=== PATIENT | female | born 1990 | race Caucasian/White ===

== ENCOUNTER 2016-10-23 15:59 | Emergency (ER) | payer MEDICAID, OTHER ==
[2016-10-23 16:46] VITALS: BMI 52.2
--- NOTE | 2016-10-23 16:48 | OBHP ---
Datetime: 10/23/2016 16:41 IP Adm Impression: , intrauterine IP Admit Plan: Discharge home Admit Comment, IP Provider: 24 yo g1 edc 10/7 by lmp and 6wk us presents to [facility] w/ c/o cough initi ally dry but today with yellow colored sputum, sore throat and nasal congestion. she denies sob, fev er, vag bleeding, pprom or uterine cramping. states current preg uncomplicated pmhx _ pshx: deneis shx: denies etoh, drugs or tobacco nkda medic: pnv I: 23.2wk uri morbid obesity p: pt d/w dr son pt to ed for eval of uri Abdomen - PN: Normal Heart - PN: Normal Neurologic - PN: Normal HEENT - PN: Normal General - PN: Normal FHR - Baseline A Provider: 140 EGA AdmitDate IP: 23.2 IP Chief Complaint: Other NICHD Variability Prov Fetus A: Minimal - Undetectable to <5bpm NICHD Accel Fetus A IP Provider: 10X10 FHR Category Provider Fetus A: Category I NICHD Decel Fetus A IP Provider: None
[2016-10-23 17:15] VITALS: BP 109/62; O2SAT 98
--- NOTE | 2016-10-23 17:38 | ED PDOC ---
HPI: CCC, URI, Sore Throat Time Seen by Provider: 10/23/16 17:19 Chief Complaint (Nursing): Shortness Of Breath History Per: Patient (Cough productive yellow sputum assoc with sore throat and nasal congestion x 2 days. No SOB) Onset/Duration Of Symptoms: Days (2) Current Symptoms Are (Timing): Still Present Location Of Pain: Throat Associated Symptoms: Sore Throat, Cough, Sputum, Nasal Congestion. denies: Fever Past Medical History Vital Signs: Last Vital Signs Temp 98.7 F 10/23/16 17:13 Pulse 92 H 10/23/16 17:13 Resp 20 10/23/16 17:13 BP 109/62 10/23/16 17:13 Pulse Ox 98 10/23/16 17:13 - Medical History PMH: No Chronic Diseases - Family History Family History: States: Unknown Family Hx - Home Medications Home Medications: Ambulatory Orders Medication Instructions Recorded Cephalexin [Keflex] 500 mg PO QID #28 cap 10/16/14 Clindamycin [Cleocin] 300 mg PO TID #30 cap 07/22/15 Tobramycin/Dexamethasone [Tobradex 1 oin TOP Q6H #1 tube 07/22/15 Opht Oint] Azithromycin [Zithromax] 250 mg PO DAILY #6 tab 10/23/16 Budesonide [Rhinocort Allergy] 8.43 ml NS DAILY #1 spray.pump 10/23/16 - Allergies Allergies/Adverse Reactions: Allergies Allergy/AdvReac Type Severity Reaction Status Date / Time pineapple AdvReac RASH Verified 10/23/16 16:45 Review of Systems Constitutional: Negative for: Fever ENT: Positive for: Throat Pain Respiratory: Positive for: Cough. Negative for: Shortness of Breath Physical Exam - Physical Exam Appears: Positive for: Non-toxic, No Acute Distress Skin: Positive for: Normal Color, Warm, DRY ENT: Negative for: Pharyngeal Erythema, Tonsillar Exudate Neck: Positive for: Normal, Painless ROM Cardiovascular/Chest: Positive for: Regular Rate, Rhythm Respiratory: Positive for: Normal Breath Sounds. Negative for: Wheezing, Respiratory Distress - ECG O2 Sat by Pulse Oximetry: 98 Disposition - Clinical Impression Clinical Impression: URI (upper respiratory infection), Pharyngitis - Disposition Referrals: Isaac Heredia MD [Primary Care Provider] - Disposition: Routine/Home Disposition Time: 17:37 Condition: FAIR Prescriptions: Azithromycin [Zithromax] 250 mg PO DAILY #6 tab Budesonide [Rhinocort Allergy] 8.43 ml NS DAILY #1 spray.pump Instructions: Pharyngitis (ED), Upper Respiratory Infection (ED)
[2016-10-23 17:55] VITALS: TEMP 97.6
[2016-10-23 17:56] VITALS: PULSE 87
[2016-10-23 17:57] VITALS: RESP 19
== END 2016-10-23 17:57 | disposition home or self-care (01) ==
LOC: H.EROB2 15:59 → H.ER 15:59
DX: J06.9 Acute upper respiratory infection, unspecified (principal); J02.9 Acute pharyngitis, unspecified; Z33.1 Pregnant state, incidental

== ENCOUNTER 2017-01-28 02:20 | Emergency (ER) | payer OTHER ==
[2017-01-28 02:53] VITALS: BMI 54.3
[2017-01-28 03:31] LABS: RBC URINE 2 /hpf (0-3); URINE BACTERIA RARE (<OCC); URINE BILIRUBIN NEGATIVE (NEGATIVE); URINE BLOOD SMALL (NEGATIVE); URINE COLOR YELLOW (YELLOW); URINE GLUCOSE (UA) NEG (Normal); URINE KETONE NEGATIVE (NEGATIVE); URINE LEUKOCYTE ESTERASE NEG Leu/uL (Negative); URINE PROTEIN NEGATIVE (NEGATIVE); URINE UROBILINOGEN 0.2-1.0 mg/dL (0.2-1.0); WBC URINE 4 /hpf (0-5)
[2017-01-28 03:32] LABS: URINE CALCIUM OXALATE CRYSTALS TRACE /hpf (<OCC)
--- NOTE | 2017-01-28 04:13 | OBHP ---
Datetime: 01/28/2017 03:45 IP Adm Impression: Term, intrauterine ; No Active Labor; Intact Membranes IP Chief Complaint Other: back pain; ? passage of mucous plug IP Admit Plan: Observation/Evaluation Admit Comment, IP Provider: 26yo IUP at 37w (EDC Feb 17) c/o passing yellow discharge (mucous li ke) this morining and some back pain. Dishcharge had small amount of blood. No pain unitl coming to L_D. Pain is in the lowr back - on and off. no meds taken. No SROM. +FM care: CP Dr Mcfadden / [facility] prior - chart rev'd POBGYNH: No STD; PMH: morbid obesity PSH: denies NKA PSoH: denies smoking ETOH drugs A: IUP at 37w elevated BP Back pain obese PLAN: montior BP, and check UA and pre-eclampsia labs Pelvic Type - PN: Adequate Extremities - PN: Normal Abdomen - PN: Normal Back - PN: Normal Breast - PN: Not Done Lungs - PN: Normal Heart - PN: Normal Thyroid - PN: Normal Neurologic - PN: Normal HEENT - PN: Normal General - PN: Abnormal Presentation-Admit: Vertex IP Fetus A Comments: sonogram cephalic FHR - Baseline A Provider: 130 Membranes, Provider: Intact Contraction Comments Provider: none Comments, ACOG Physical Exam: ROS: General: no weakness; no fatigue HEENT: no RIZVI; no visual dist CV: no palpitations; no no CP GI: no N/V no diarhea : no F/U/D MS: No joint pain Pool Provider: Negative IP Hx Assessment: The History has been Reviewed and is Current EGA AdmitDate IP: 37.1 Vital Signs Provider: Reviewed Vital Signs Provider Details: BP 143/85 IP Chief Complaint: Other NICHD Variability Prov Fetus A: Moderate 6-25bpm NICHD Accel Fetus A IP Provider: 15X15 FHR Category Provider Fetus A: Category I NICHD Decel Fetus A IP Provider: None Dilatation, Provider: FT Effacement, Provider: long Genitourinary Exam: Normal
[2017-01-28 04:27] LABS: HEMATOCRIT 33.6 % (34.0-47.0); MEAN CELL VOLUME 84.9 fl (81.0-99.0); MEAN CORPUSCULAR HEMOGLOBIN 28.9 pg (27.0-31.0); RED CELL DISTRIBUTION WIDTH 14.7 % (11.5-14.5); WHITE BLOOD COUNT 10.8 K/uL (4.8-10.8)
[2017-01-28 04:34] LABS: ALKALINE PHOSPHATASE 112 U/L (38-126); ALT/SGPT 31 U/L (9-52); AST/SGOT 28 U/L (14-36); BILIRUBIN,TOTAL 0.3 mg/dl (0.2-1.3); BLOOD UREA NITROGEN 9 mg/dl (7-17); CARBON DIOXIDE 23 mmol/L (22-30); CHLORIDE 105 mmol/L (98-107); GFR AFRICAN-AMERICAN > 60; GLUCOSE,RANDOM 80 mg/dL (65-105); POTASSIUM 3.9 MMOL/L (3.6-5.0); SODIUM 137 mmol/l (132-148); TOTAL PROTEIN 6.6 G/DL (6.3-8.2); URIC ACID 5.1 mg/Dl (2.2-7.5)
[2017-01-28 04:38] LABS: ALB/GLOB RATIO 1.1 (1.0-2.1)
--- NOTE | 2017-01-28 07:01 | OBDCSUM ---
Datetime: 01/28/2017 06:23 Discharged to, Provider: Home Follow up at, Provider: Dr. Mcfadden Disch Instr Activity: Normal activity Disch Instr Diet: Regular Discharge Diagnosis, Provider: False Labor - Undelivered Discharge Time: 01/28/2017 06:41 Follow up in weeks, Provider: Sunday, 01/31 @ 1:00 Disch Referrals: None Discharge Comment, Provider: Copyof lab work given to pt...spoke with Dr Mcfadden to dischargre home
[2017-01-28 10:48] VITALS: BP 130/71; PULSE 96; RESP 17; TEMP 98.4
== END 2017-01-28 06:41 | disposition home or self-care (01) ==
LOC: H.EROB2 02:20
DX: O47.1 False labor at or after 37 completed weeks of gestation (principal); O13.3 Gestational [pregnancy-induced] hypertension without significant proteinuria, third trimester; O99.213 Obesity complicating pregnancy, third trimester; Z3A.37 37 weeks gestation of pregnancy

== ENCOUNTER 2017-01-29 09:15 | Inpatient (IN) | payer OTHER ==
[2017-01-28 02:53] VITALS: BMI 54.3
[2017-01-29] MEDS ORDERED: Oxytocin 30 units/LR 500ML 30 U/500 ML BAG IV ONE (13:40)
[2017-01-29] MEDS ORDERED: Lactated Ringer's 1,000 ML IV SCH (13:45)
[2017-01-29] MEDS: Lactated Ringer's 1,000 ML IV SCH ×2 (14:26→22:30)
[2017-01-29] MEDS ORDERED: Bupivacaine HCl 0.25% PF (10 ml) Inj ONE (16:53)
[2017-01-29] MEDS ORDERED: Fentanyl/Bupivacaine HCl 250 ML EPI ONE (16:53)
[2017-01-29] MEDS ORDERED: Lidocaine 1% Inj (20ml) ONE (17:21)
[2017-01-30] MEDS ORDERED: Oxytocin 30 units/LR 500ML 30 U/500 ML BAG IV ONE (03:33)
[2017-01-30] MEDS ORDERED: Lidocaine 2% PF (10 ml) Amp ONE (05:48)
[2017-01-30] MEDS ORDERED: Bupivacaine HCl 0.5% PF (30 ml) Inj ONE (05:49)
[2017-01-30] MEDS ORDERED: Midazolam 2 MG/2 ML VIAL ONE (06:53)
[2017-01-30] MEDS ORDERED: Cellulose Hemostat 2X3 Sheet ONE (07:09)
[2017-01-30] MEDS ORDERED: Morphine 5 mg/10 ml preservative-free Inj(Duramorph) ONE (07:23)
[2017-01-30] MEDS ORDERED: Oxycodone/Acetaminophen 5/325 mg Tab PO PRN (08:22)
--- NOTE | 2017-01-30 08:27 | OBDS ---
DELIVERY PERSONNEL Delivery Doctor: Blaire Mcfadden MD [employer] Truck Driver: Mukul Cota RN, Kumar BHATIA Anesthesiologist: Blaire Tiwari MD MATERNAL INFORMATION Delivery Anesthesia: Epidural Medications in Delivery: pitocin Estimated Blood Loss (ml): 950cc Placenta Cultured: No Maternal Complications: Prolonged Second Stage > 2 Hrs; Other Other Maternal Complications: morbid obesity RN Comments: Trial of Labor attempted Infant Failure to Descent Urine output 200 Provider Comments: see dictated surgeons note LABOR SUMMARY EDC: 02/17/2017 00:00 No. Babies in Womb: 1 Attempted: No Labor Anesthesia: Epidural LABOR INFORMATION Reason for Induction: Not Applicable Onset of Labor: 01/29/2017 04:00 Complete Dilatation: 01/30/2017 01:33 Oxytocin: Augmentation Group B Beta Strep: Negative Antibiotics # of Doses: Mefoxin 2 gram IVPB x1 Antibiotics Time of Last Dose: 0545 Steroids Given: None Reason Steroids Not Administered: Not Applicable MEMBRANES Membranes Rupture Method: Spontaneous Rupture of Membranes: 01/29/2017 04:00 Length of Rupture (hrs): 26.70 Amniotic Fluid Color: Clear Amniotic Fluid Amount: Moderate Amniotic Fluid Odor: Normal STAGES OF LABOR Stage 1 hrs: 21 Stage 1 min: 33 Stage 2 hrs: 5 Stage 2 min: 9 Stage 3 hrs: 0 Stage 3 min: 2 Total Time in Labor hrs: 26 Total Time in Labor min: 44 VAGINAL DELIVERY Sponge Count Correct: Yes Sharps Count Correct: Yes Count Comment: count correct x3 CSECTION DELIVERY Primary Indication: Failure of Descent CSection Urgency: Non Elective CSection Incidence: Primary Labor: Labor CSection Incision: Lower Uterine Transverse Uterine Closure: Double-layer closure BABY A INFORMATION Infant Delivery Date/Time: 01/30/2017 06:42 Method of Delivery: Born in Route : No : N/A Forceps: N/A Vacuum Extraction: N/A Shoulder Dystocia : No SHOULDER DYSTOCIA BABY A Delivery Date/Time: 01/30/2017 06:42 PRESENTATION/POSITION BABY A Presentation: Cephalic Breech Presentation: N/A PLACENTA INFORMATION BABY A Placenta Delivery Time : 01/30/2017 06:44 Placenta Method of Delivery: Placenta Status: Delivered SCORES BABY A Heart Rate 1 min: >100 bpm Resp Effort 1 min: Good Cry Reflex Irritability 1 min: Cough or Sneeze or Pulls Away Muscle Tone 1 min: Active Motion Color 1 min: Body Kopperl, Extremities Blue Resuscitation Effort 1 min: Tactile Stimulation SCORE 1 MIN: 9 Heart Rate 5 min: >100 bpm Resp Effort 5 min: Good Cry Reflex Irritability 5 min: Cough or Sneeze or Pulls Away Muscle Tone 5 min: Active Motion Color 5 min: Body Kopperl, Extremities Blue Resuscitation Effort 5 min: N/A SCORE 5 MIN: 9 INFORMATION BABY A Gestational Age at Delivery: 37.3 Gestational Status: Term Infant Outcome : Liveborn Infant Condition : Stable Infant Sex: Male IDENTIFICATION/MEDS BABY A ID Band Number: [id number] ID Band Location: Left Leg; Left Arm WEIGHT/LENGTH BABY A Birthweight (gms): 3555 Infant Weight (lb): 7 Weight (oz): 13 CORD INFORMATION BABY A No. Cord Vessels: 3 Nuchal Cord : N/A Cord Blood Taken: Yes Infant Suction: Mouth; Nose ASSESSMENT BABY A Infant Complications: None Physical Findings at Delivery: Caput Succedaneum Infant Respirations: Appears Normal Supervisor Seaming/ALS Called : No Care By: Leonard Pruett RN Transferred To: [facility]
[2017-01-30] MEDS ORDERED: Lactated Ringer's 1,000 ML IV SCH (10:50)
[2017-01-30] MEDS: cefOXitin Sodium 1 GM in Sodium Chloride 0.9% 100 ML IVPB SCH ×2 (12:56→16:30)
[2017-01-31] MEDS: cefOXitin Sodium 1 GM in Sodium Chloride 0.9% 100 ML IVPB SCH (01:11)
[2017-01-31] MEDS: Oxycodone/Acetaminophen 5/325 mg Tab PO PRN ×2 (04:44→20:23)
[2017-01-31 06:50] LABS: HEMATOCRIT 26.7 % (34.0-47.0); MEAN CELL VOLUME 86.1 fl (81.0-99.0); MEAN CORPUSCULAR HEMOGLOBIN 28.2 pg (27.0-31.0); MEAN CORPUSCULAR HGB CONC 32.7 g/dL (33.0-37.0); RED CELL DISTRIBUTION WIDTH 14.8 % (11.5-14.5); WHITE BLOOD COUNT 12.6 K/uL (4.8-10.8)
--- NOTE | 2017-01-31 08:16 | OBPPN ---
Datetime: 01/31/2017 08:12 PP Pain Prov: Within normal limits PP Pain Prov comment: No SOB, chest pains or leg pains PP Nausea Prov: Denies PP Flatus Prov: No PP BM Prov: No PP Breasts Prov: Normal PP Lungs Prov: Normal PP Abdomen/Uterus Prov: Abnormal PP Lochia Prov: Normal PP Vulva/Perineum Prov: Normal PP CVA Tenderness Prov: Normal PP Extremities Prov: Normal PP C/S Incision Prov: Normal PP Progress Prov: Normal PP Comments Phys Exam Prov: breast not engorged NT, Abd soft ND fundus firm Dressing intact, no sign or active bleeding Ext no calf tenderness PP Impression Prov: Normal progression PP Plan Prov: Continue present management PP Progress Note Prov: Start po iron OOB and ambulation Increase diet as tolerated. IP PP Procedures: None Vital Signs Provider PP: Reviewed
[2017-01-31] MEDS: Simethicone 80 mg Chewtab PO SCH ×3 (09:06→22:24)
[2017-01-31] MEDS ORDERED: Simethicone 80 mg Chewtab PO SCH (10:00)
--- NOTE | 2017-02-01 08:25 | OBPPN ---
Datetime: 02/01/2017 08:18 PP Pain Prov: Within normal limits PP Pain Prov comment: No SOB, chest pains or leg pains PP Nausea Prov: Denies PP Flatus Prov: Yes PP BM Prov: Yes PP Breasts Prov: Normal PP Lungs Prov: Normal PP Abdomen/Uterus Prov: Abnormal PP Lochia Prov: Normal PP Vulva/Perineum Prov: Normal PP CVA Tenderness Prov: Normal PP Extremities Prov: Normal PP C/S Incision Prov: Normal PP Progress Prov: Normal PP Comments Phys Exam Prov: breast not engorged, NT; Abd soft, ND, fundus firm incision clean and dr y selin in place no active bleeding or suppt Ext no calf tenderness. PP Impression Prov: Normal progression PP Plan Prov: Continue present management PP Progress Note Prov: OOB and ambulation, dulcolax suppt this pm if no bm, continue PO care. IP PP Procedures: None Vital Signs Provider PP: Reviewed
[2017-02-01] MEDS: Simethicone 80 mg Chewtab PO SCH ×3 (09:40→21:41)
[2017-02-02] MEDS: Simethicone 80 mg Chewtab PO SCH ×2 (03:47→09:32)
[2017-02-02 10:15] VITALS: BP 126/80; PULSE 97
--- NOTE | 2017-02-02 11:13 | OBPPN ---
Datetime: 02/02/2017 11:07 PP Pain Prov: Within normal limits PP Pain Prov comment: No SOB, chest pains or leg pains PP Nausea Prov: Denies PP Flatus Prov: Yes PP BM Prov: Yes PP Nausea Prov comment: no dizziness or weakness PP Flatus Prov comment: voiding well PP Breasts Prov: Normal PP Lungs Prov: Normal PP Abdomen/Uterus Prov: Abnormal PP Lochia Prov: Normal PP Vulva/Perineum Prov: Normal PP CVA Tenderness Prov: Normal PP Extremities Prov: Abnormal PP C/S Incision Prov: Normal PP Progress Prov: Normal PP Comments Phys Exam Prov: breast NT not engorged. Abd soft ND, fundus firm below the umb Incision clean and dry selin in place no active bleeding Ext mati minimal edema, no calf tenderness. PP Impression Prov: Normal progression PP Plan Prov: Discharge PP Progress Note Prov: D/C home with instructions and follow up office in 1 wk IP PP Procedures: None Vital Signs Provider PP: Reviewed
--- NOTE | 2017-02-02 11:16 | OBDCSUM ---
Datetime: 02/02/2017 11:12 Discharged to, Provider: Home Follow up at, Provider: Dr Mcfadden Disch Instr Activity: Bedrest; May be up to bathroom; May be up for meals; May Shower Disch Instr Diet: Regular Discharge Instructions, Provider: Routine instructions given Discharge Diagnosis, Provider: Term Delivered Discharge Time: 02/02/2017 11:12 Follow up in weeks, Provider: 1 wk Disch Referrals: None Contraception discussed, Prov: Yes Disch Activity Restrictions: No exercising; No lifting; No driving; Minimize walking; Minimize stair -climbing; No sexual activity; Nothing in vagina - [place] Gu[place], tampons, douche Discharge Comment, Provider: continue PO care pelvic and bed rest and PNC vit and iron Discharge Diagnosis Prov Other: obesity/anemia Contraception after Delivery: Undecided Datetime: 01/28/2017 06:23 Disch Activity Restrictions: No exercising; No lifting; No sexual activity; Nothing in vagina - Inte rcourse, tampons, douche
[2017-02-03 01:05] VITALS: RESP 20; TEMP 98.7; O2SAT 97
== END 2017-02-02 13:48 | disposition home or self-care (01) | DRG 370 ==
LOC: H.EROB2 09:15 → H.L&D 10:40 → H.OB/GYN 01-30 10:15
PROVIDERS: ADMIT Specialist; ATTEND Specialist
PROC: 4A1HXCZ Monitoring of Products of Conception, Cardiac Rate, External Approach (ICD-10-PCS; 2017-01-29)
PROC: 10D00Z1 Extraction of Products of Conception, Low, Open Approach (ICD-10-PCS; principal; 2017-01-30)
DX: O32.4XX0 Maternal care for high head at term, not applicable or unspecified (principal); O99.02 Anemia complicating childbirth; E66.01 Morbid (severe) obesity due to excess calories; Z37.0 Single live birth; O63.1 Prolonged second stage (of labor); O99.214 Obesity complicating childbirth; D64.9 Anemia, unspecified; Z3A.37 37 weeks gestation of pregnancy

== ENCOUNTER 2017-02-07 13:19 | Inpatient (IN) | payer OTHER ==
[2017-02-07 13:19] VITALS: BMI 54.3
[2017-02-07] MEDS ORDERED: Lactated Ringer's 1,000 ML IV STA (13:58)
--- NOTE | 2017-02-07 14:08 | ED PDOC ---
HPI: General Adult Time Seen by Provider: 02/07/17 13:53 Chief Complaint (Nursing): Dizziness/Lightheaded Chief Complaint (Provider): lightheaded History Per: Patient History/Exam Limitations: no limitations Onset/Duration Of Symptoms: Days (2), Gradual, Persistent Current Symptoms Are (Timing): Still Present Severity: Mild Additional Complaint(s): csxn 1 week. Vaginal bleeding since 3pads/day with occasional clots. Also reporting feeling hot and flushed. No chest pain or shortness of breath. Seen at [facility] for care and Hgb screen 7.9 OBGYN: Dr Mcfadden. Past Medical History Reviewed: Historical Data, Nursing Documentation, Vital Signs Vital Signs: Last Vital Signs Temp 99.2 F 02/07/17 14:58 Pulse 120 H 02/07/17 13:44 Resp 20 02/07/17 13:44 BP 153/78 H 02/07/17 13:44 Pulse Ox 99 02/07/17 15:20 - Medical History PMH: Denies: Depression, Diabetes, HTN - Surgical History Surgical History: - Family History Family History: States: Hypertension, Other Other Family History: Anemia - Social History Current smoker - smoking cessation education provided: No Ex-Smoker (has not smoked in the last 12 months): Yes Drugs: Denies - Home Medications Home Medications: Ambulatory Orders Medication Instructions Recorded Vit No.126/Iron/Folic 1 tab PO DAILY 01/28/17 [Classic Tablet] oxyCODONE/Acetaminophen [Percocet 1 ea PO Q4 PRN #30 tab 02/02/17 5/325 mg Tab] - Allergies Allergies/Adverse Reactions: Allergies Allergy/AdvReac Type Severity Reaction Status Date / Time pineapple AdvReac RASH Verified 01/28/17 04:42 Review of Systems ROS Statement: Except As Marked, All Systems Reviewed And Found Negative (and as per HPI) Constitutional: Positive for: Chills, Sweats, Weakness, Malaise. Negative for: Fever Cardiovascular: Positive for: Light Headedness. Negative for: Chest Pain, Palpitations Respiratory: Negative for: Shortness of Breath, SOB with Exertion Genitourinary Female: Positive for: Vaginal Bleeding, Pelvic Pain (localizing to csxn scar) Neurological: Positive for: Dizziness. Negative for: Headache Physical Exam - Reviewed Nursing Documentation Reviewed: Yes Vital Signs Reviewed: Yes - Physical Exam Appears: Positive for: Non-toxic, No Acute Distress Head Exam: Positive for: ATRAUMATIC, NORMOCEPHALIC Skin: Positive for: Warm, Dry, Pallor Eye Exam: Positive for: EOMI, PERRL ENT: Positive for: Other (tacky mucus membranes). Negative for: Pharyngeal Erythema, Tonsillar Exudate Neck: Positive for: Painless ROM, Supple Cardiovascular/Chest: Positive for: Tachycardia (regular rhythm). Negative for : Murmur Respiratory: Positive for: Normal Breath Sounds. Negative for: Respiratory Distress Gastrointestinal/Abdominal: Positive for: Soft, Other (csxn scar intact with some induration inferior to wound). Negative for: Tenderness Back: Positive for: Normal Inspection. Negative for: Decreased ROM Extremity: Positive for: Normal ROM. Negative for: Deformity Lymphatic: Negative for: Adenopathy Neurologic/Psych: Positive for: Alert. Negative for: Motor/Sensory Deficits - Laboratory Results Result Diagrams: 02/07/17 14:04 02/07/17 14:10 - ECG O2 Sat by Pulse Oximetry: 99 Pulse Ox Interpretation: Normal - Progress ED Course And Treament: Fever and tachycardia with pallor and signs of cellulitis near surgical wound Leukocytosis, anemia, thrombocytosis in lab findings. Possible UTI but also can be contaminated. Pt to be hospitalized for IV antibiotics to treat cellulitis with sepsis. Disposition - Clinical Impression Clinical Impression: Cellulitis, abdominal wall, Sepsis Discussed With : Juan F Mcfadden Doctor Will See Patient In The: Hospital Counseled Patient/Family Regarding: Studies Performed, Diagnosis - Disposition Disposition Time: 15:30 Condition: SERIOUS - Pt Status Changed To: Hospital Disposition Of: Observation - POA Present On Arrival: None
[2017-02-07] MEDS ORDERED: Dextrose 5%/Lactated Ringer's 1,000 ML IV SCH (14:15)
[2017-02-07 14:31] LABS: BASO # 0.1 K/uL (0.0-0.2); BASO % 0.7 % (0.0-2.0); EOS # 0.2 K/uL (0.0-0.7); EOS % 1.5 % (0.0-4.0); HEMATOCRIT 24.6 % (34.0-47.0); LYMPH # 2.1 K/uL (1.0-4.3); MEAN CELL VOLUME 85.4 fl (81.0-99.0); MEAN CORPUSCULAR HEMOGLOBIN 27.9 pg (27.0-31.0); MEAN CORPUSCULAR HGB CONC 32.7 g/dL (33.0-37.0); MEAN PLATELET VOLUME 7.4 fl (7.2-11.7); MONO # 0.8 K/uL (0.0-0.8); MONO % 5.3 % (0.0-10.0); NEUT # 11.5 K/uL (1.8-7.0); NEUT % 78.5 % (50.0-75.0); RETIC% 2.1 % (0.5-1.5); WHITE BLOOD COUNT 14.7 K/uL (4.8-10.8)
[2017-02-07 14:39] LABS: RBC URINE 184 /hpf (0-3); URINE BACTERIA MOD (<OCC); URINE BILIRUBIN NEGATIVE (NEGATIVE); URINE BLOOD LARGE (NEGATIVE); URINE COLOR YELLOW (YELLOW); URINE GLUCOSE (UA) NEG (Normal); URINE KETONE 20 mg/dL (NEGATIVE); URINE LEUKOCYTE ESTERASE LARGE Leu/uL (Negative); URINE PROTEIN 30 mg/dL (NEGATIVE); WBC URINE 139 /hpf (0-5)
[2017-02-07 14:42] LABS: ALKALINE PHOSPHATASE 96 U/L (38-126); ALT/SGPT 68 U/L (9-52); AST/SGOT 47 U/L (14-36); BILIRUBIN,TOTAL 0.4 mg/dl (0.2-1.3); BLOOD UREA NITROGEN 10 mg/dl (7-17); CALCIUM 8.4 mg/dL (8.4-10.2); CARBON DIOXIDE 23 mmol/L (22-30); CHLORIDE 106 mmol/L (98-107); GFR AFRICAN-AMERICAN > 60; GLUCOSE,RANDOM 100 mg/dL (65-105); POTASSIUM 3.7 MMOL/L (3.6-5.0); SODIUM 143 mmol/l (132-148); TOTAL PROTEIN 6.7 G/DL (6.3-8.2)
[2017-02-07 14:50] LABS: PARTIAL THROMBOPLASTIN TIME 27.3 Seconds (25.6-37.1)
[2017-02-07 15:26] LABS: VENOUS BLOOD GAS BASE EXCESS 4.1 mmol/L (0.0-2.0); VENOUS BLOOD GAS PCO2 51 mmHg (40-60); VENOUS BLOOD PH 7.38 (7.32-7.43)
[2017-02-07] MEDS ORDERED: cefTRIAXone (Rocephin) 1 gm Inj ONE (17:29)
[2017-02-07] MEDS: Lactated Ringer's 1,000 ML IV SCH (22:41)
[2017-02-08] MEDS: Lactated Ringer's 1,000 ML IV SCH (01:54)
[2017-02-08 07:34] LABS: BASO % 0.3 % (0.0-2.0); EOS # 0.2 K/uL (0.0-0.7); EOS % 1.5 % (0.0-4.0); HEMATOCRIT 24.4 % (34.0-47.0); LYMPH # 2.1 K/uL (1.0-4.3); LYMPH % 14.8 % (20.0-40.0); MEAN CELL VOLUME 84.4 fl (81.0-99.0); MEAN CORPUSCULAR HEMOGLOBIN 27.2 pg (27.0-31.0); MEAN CORPUSCULAR HGB CONC 32.2 g/dL (33.0-37.0); MEAN PLATELET VOLUME 7.1 fl (7.2-11.7); MONO # 0.7 K/uL (0.0-0.8); MONO % 5.1 % (0.0-10.0); NEUT # 11.2 K/uL (1.8-7.0); NEUT % 78.3 % (50.0-75.0); RED CELL DISTRIBUTION WIDTH 14.9 % (11.5-14.5); WHITE BLOOD COUNT 14.3 K/uL (4.8-10.8)
[2017-02-08 07:53] LABS: BLOOD UREA NITROGEN 8 mg/dl (7-17); CALCIUM 8.4 mg/dL (8.4-10.2); CARBON DIOXIDE 25 mmol/L (22-30); CHLORIDE 106 mmol/L (98-107); GFR AFRICAN-AMERICAN > 60; GLUCOSE,RANDOM 88 mg/dL (65-105); POTASSIUM 3.7 MMOL/L (3.6-5.0); SODIUM 143 mmol/l (132-148)
--- NOTE | 2017-02-08 08:24 | CP.PCM.HP ---
History of Present Illness - History of Present Illness History of Present Illness: 26 y/o s/p C/S on 01/30/17 for failure of descend complicated by po anemia and obesity. /C home on po vit and iron and seen in Office on Sunday with c/o some discharge from wound examination showed no suppt or fluctuation but mild redness in incisional aarea and placed on PO Keflex 500mg q 6 hrs but came in to ER yesterday with c/o fever and found febrile and with increased WBC count and wound now more red and indurated. Admittted for IV antibiotics Present on Admission - Present on Admission Any Indicators Present on Admission: Yes History of DVT/PE: No History of Uncontrolled Diabetes: No Urinary Catheter: No Decubitus Ulcer Present: No - Notes: Notes:: wond infection and cellulitis Review of Systems - Constitutional Constitutional: As Per HPI, Chills, Fever, Other Additional comments: morbid obesity - Breasts Breasts: Other Additional comments: not engorged Breast feeding - Cardiovascular Additional comments: tachycardia - Reproductive: Female Reproductive:Female: As Per HPI - Menstruation Menstruation: As Per HPI - Hematologic/Lymphatic Hematologic: As Per HPI Past Patient History - Past Medical History & Family History Past Medical History?: Yes - Past Social History Smoking Status: Never Smoked Chewing Tobacco Use: No Cigar Use: No Alcohol: None Drugs: Denies - CARDIAC Hx Cardiac Disorders: No - PULMONARY Hx Respiratory Disorders: No - NEUROLOGICAL Hx Neurological Disorder: No - HEENT Hx HEENT Problems: No - RENAL Hx Chronic Kidney Disease: No - ENDOCRINE/METABOLIC Hx Endocrine Disorders: No - HEMATOLOGICAL/ONCOLOGICAL Hx Blood Disorders: Yes Hx Anemia: Yes - INTEGUMENTARY Hx Dermatological Problems: No - MUSCULOSKELETAL/RHEUMATOLOGICAL Hx Musculoskeletal Disorders: No Hx Falls: No - GASTROINTESTINAL Hx Gastrointestinal Disorders: No - GENITOURINARY/GYNECOLOGICAL Hx Genitourinary Disorders: No Other/Comment: See HPI LMP:: : 1 Para: 1 - PSYCHIATRIC Hx Psychophysiologic Disorder: No Hx Substance Use: No - SURGICAL HISTORY Hx Surgeries: Yes Hx Section: Yes Other/Comment: See HPI - ANESTHESIA Hx Anesthesia: Yes Hx Anesthesia Reactions: No Hx Malignant Hyperthermia: No Has any member of the family had a problem w/ anesthesia?: No Meds Allergies/Adverse Reactions: Allergies Allergy/AdvReac Type Severity Reaction Status Date / Time pineapple AdvReac RASH Verified 01/28/17 04:42 Physical Exam - Constitutional Appears: No Acute Distress - Head Exam Head Exam: ATRAUMATIC - ENT Exam ENT Exam: Mucous Membranes Moist - Neck Exam Neck exam: Positive for: Full Rom - Respiratory Exam Respiratory Exam: NORMAL BREATHING PATTERN - Cardiovascular Exam Cardiovascular Exam: REGULAR RHYTHM - GI/Abdominal Exam GI & Abdominal Exam: Normal Bowel Sounds, Soft Additional comments: globulous and obese, Incisional area red and some yelllowish liquidy discharge from rt side of wound [place] in place some removed on both sides and on the rt side about 2cm area open up and yellowish sanguinous fluid evacuated and C/S sent area cleaned with H2O2 and drained - Extremities Exam Extremities exam: Positive for: normal inspection Additional comments: no calf tenderness - Neurological Exam Neurological exam: Alert, Oriented x3 - Psychiatric Exam Psychiatric exam: Normal Affect Results - Vital Signs Recent Vital Signs: Last Vital Signs Temp 98.7 F 02/08/17 07:44 Pulse 100 H 02/08/17 07:44 Resp 18 02/08/17 07:44 BP 130/86 02/08/17 07:44 Pulse Ox 95 02/08/17 07:44 - Labs Result Diagrams: 02/08/17 07:10 02/08/17 07:10 Labs: Laboratory Results - last 24 hr 02/07/17 02/07/17 02/07/17 14:04 14:10 14:10 WBC 14.7 H RBC 2.88 L Hgb 8.0 L Hct 24.6 L MCV 85.4 MCH 27.9 MCHC 32.7 L RDW 15.0 H Plt Count 575 H D MPV 7.4 Neut % (Auto) 78.5 H Lymph % (Auto) 14.0 L [place] % (Auto) 5.3 Eos % (Auto) 1.5 Baso % (Auto) 0.7 Neut # 11.5 H Lymph # 2.1 [place] # 0.8 Eos # 0.2 Baso # 0.1 Retic Count 2.1 H PT INR APTT pO2 VBG pH VBG pCO2 VBG HCO3 VBG Total CO2 VBG O2 Sat (Calc) VBG Base Excess VBG Potassium A-a O2 Difference Glucose Lactate FiO2 Crit Value Called To Crit Value Called By Crit Value Read Back Blood Gas Notified Time Sodium 143 Potassium 3.7 Chloride 106 Carbon Dioxide 23 Anion Gap 17 BUN 10 Creatinine 0.6 L Est GFR ( Amer) > 60 Est GFR (Non-Af Amer) > 60 Random Glucose 100 Calcium 8.4 Total Bilirubin 0.4 AST 47 H D ALT 68 H D Alkaline Phosphatase 96 Total Protein 6.7 Albumin 3.3 L Globulin 3.4 Albumin/Globulin Ratio 1.0 Venous Blood Potassium Urine Color Urine Clarity Urine pH Ur Specific [place] Urine Protein Urine Glucose (UA) Urine Ketones Urine Blood Urine Nitrate Urine Bilirubin Urine Urobilinogen Ur Leukocyte Esterase Urine RBC (Auto) Urine Microscopic WBC Ur Squamous Epith Cells Urine Bacteria Urine Yeast (Budding) Blood Type O POSITIVE Antibody Screen Negative Crossmatch See Detail BBK History Checked Patient has bt 02/07/17 02/07/17 02/07/17 14:10 14:10 15:22 WBC RBC Hgb Hct MCV MCH MCHC RDW Plt Count MPV Neut % (Auto) Lymph % (Auto) [place] % (Auto) Eos % (Auto) Baso % (Auto) Neut # Lymph # [place] # Eos # Baso # Retic Count PT 11.5 INR 1.1 APTT 27.3 pO2 26 L VBG pH 7.38 VBG pCO2 51 VBG HCO3 26.9 VBG Total CO2 31.8 H VBG O2 Sat (Calc) 45.0 VBG Base Excess 4.1 H VBG Potassium 3.6 A-a O2 Difference 60.0 Glucose 88 Lactate 1.9 FiO2 21.0 Crit Value Called To lyndsay Ponce Crit Value Called By 203 Crit Value Read Back Y Blood Gas Notified Time 1526 Sodium 138.0 Potassium Chloride 107.0 Carbon Dioxide Anion Gap BUN Creatinine Est GFR ( Amer) Est GFR (Non-Af Amer) Random Glucose Calcium Total Bilirubin AST ALT Alkaline Phosphatase Total Protein Albumin Globulin Albumin/Globulin Ratio Venous Blood Potassium 3.6 Urine Color Yellow Urine Clarity Cloudy Urine pH 6.0 Ur Specific [place] 1.016 Urine Protein 30 Urine Glucose (UA) Neg Urine Ketones 20 Urine Blood Large Urine Nitrate Negative Urine Bilirubin Negative Urine Urobilinogen 2.0 H Ur Leukocyte Esterase Large Urine RBC (Auto) 184 H Urine Microscopic WBC 139 H Ur Squamous Epith Cells 2 Urine Bacteria Mod H Urine Yeast (Budding) Occ H Blood Type Antibody Screen Crossmatch BBK History Checked 02/08/17 02/08/17 07:10 07:10 WBC 14.3 H RBC 2.89 L Hgb 7.9 L Hct 24.4 L MCV 84.4 MCH 27.2 MCHC 32.2 L RDW 14.9 H Plt Count 530 H MPV 7.1 L Neut % (Auto) 78.3 H Lymph % (Auto) 14.8 L [place] % (Auto) 5.1 Eos % (Auto) 1.5 Baso % (Auto) 0.3 Neut # 11.2 H Lymph # 2.1 [place] # 0.7 Eos # 0.2 Baso # 0.0 Retic Count PT INR APTT pO2 VBG pH VBG pCO2 VBG HCO3 VBG Total CO2 VBG O2 Sat (Calc) VBG Base Excess VBG Potassium A-a O2 Difference Glucose Lactate FiO2 Crit Value Called To Crit Value Called By Crit Value Read Back Blood Gas Notified Time Sodium 143 Potassium 3.7 Chloride 106 Carbon Dioxide 25 Anion Gap 16 BUN 8 Creatinine 0.6 L Est GFR ( Amer) > 60 Est GFR (Non-Af Amer) > 60 Random Glucose 88 Calcium 8.4 Total Bilirubin AST ALT Alkaline Phosphatase Total Protein Albumin Globulin Albumin/Globulin Ratio Venous Blood Potassium Urine Color Urine Clarity Urine pH Ur Specific [place] Urine Protein Urine Glucose (UA) Urine Ketones Urine Blood Urine Nitrate Urine Bilirubin Urine Urobilinogen Ur Leukocyte Esterase Urine RBC (Auto) Urine Microscopic WBC Ur Squamous Epith Cells Urine Bacteria Urine Yeast (Budding) Blood Type Antibody Screen Crossmatch BBK History Checked Assessment & Plan (1) Morbid obesity Status: Chronic (2) Wound cellulitis Status: Acute (3) Incisional infection Status: Acute - Assessment and Plan (Free Text) Plan: for IV antibiotics after failed po tx and wound care
[2017-02-09 06:42] LABS: HEMATOCRIT 24.1 % (34.0-47.0); MEAN CELL VOLUME 85.2 fl (81.0-99.0); MEAN CORPUSCULAR HEMOGLOBIN 27.6 pg (27.0-31.0); MEAN CORPUSCULAR HGB CONC 32.4 g/dL (33.0-37.0); RED CELL DISTRIBUTION WIDTH 14.8 % (11.5-14.5); WHITE BLOOD COUNT 11.9 K/uL (4.8-10.8)
--- NOTE | 2017-02-09 09:37 | CP.PCM.PN ---
Subjective - Date & Time of Evaluation Date of Evaluation: 02/09/17 Time of Evaluation: 09:34 - Subjective Subjective: Denies C/F feels better voiding well Objective - Vital Signs/Intake and Output Vital Signs (last 24 hours): Temp Pulse Resp BP Pulse Ox 98.5 F 98 H 20 146/99 H 95 02/09/17 08:33 02/09/17 08:33 02/09/17 08:33 02/09/17 08:33 02/09/17 08:33 - Medications Medications: Current Medications Docusate Sodium (Colace) 100 mg PO BID [facility] Last Admin: 02/09/17 08:29 Dose: 100 mg Ferrous Sulfate (Feosol) 325 mg PO BID [facility] Last Admin: 02/09/17 08:29 Dose: 325 mg Ceftriaxone Sodium 1 gm/ (Sodium Chloride) 100 mls @ 100 mls/hr IVPB DAILY [facility] Last Admin: 02/09/17 08:29 Dose: 100 mls/hr Lactated Ringer's (Lactated Ringer's) 1,000 mls @ 125 mls/hr IV .Q8H [facility] Last Admin: 02/08/17 01:54 Dose: 125 mls/hr Ibuprofen (Motrin Tab) 800 mg PO Q8 PRN PRN Reason: Pain, moderate (4-7) Last Admin: 02/08/17 18:58 Dose: 800 mg - Labs Labs: 02/09/17 06:25 02/08/17 07:10 PT 11.5 Seconds (9.8-13.1) 02/07/17 14:10 INR 1.1 (0.9-1.2) 02/07/17 14:10 APTT 27.3 Seconds (25.6-37.1) 02/07/17 14:10 - Constitutional Appears: No Acute Distress - Head Exam Head Exam: ATRAUMATIC - ENT Exam ENT Exam: Mucous Membranes Moist - Respiratory Exam Respiratory Exam: NORMAL BREATHING PATTERN - GI/Abdominal Exam GI & Abdominal Exam: Soft Additional comments: globulous, depressible ND, fundus firm NT. Incision still some suppuration and redness packing in place removed and area cleaned with H2O2 and repacked with iodoform packing - Extremities Exam Additional comments: no calf tenderness - Neurological Exam Neurological Exam: Alert, Awake, Oriented x3 Assessment and Plan (1) Morbid obesity Status: Chronic (2) Wound cellulitis Status: Acute (3) Incisional infection Status: Acute - Assessment and Plan (Free Text) Assessment: stable Plan: preliminary cult showed Gram positive cocci pending sensitivity Discussed with pharmacist staff and better coverage with ancef than rocephin so will switch antibiotics and pending sensitivity Continue daily wound care and IV antibiotics Discussed with pt
--- NOTE | 2017-02-09 10:29 | CP.PCM.CON ---
History of Present Illness - History of Present Illness History of Present Illness: This is a 26 yrs old female who had a c section on 01/28/17. She did well after the c/s and was sent home. Prior to surgery her hgb was 11.7, but at home she started having a lot of vaginal bleeding sometimes even clots. She also had some redness in the right side of the surgical wound with a discharge. Her hgb trended down to 7.8 today. She does not have any shortness of breath, or tachycardia. Her WBC was elevated to 14.2 and she was diagnosed to have a cellulitis of the surgical site. She was admitted for antibiotics, and the wound looks better. Her bleeding has slowed down and she is very anxious to go home. I was asked to see her fr the anemia. Past Patient History - Past Medical History & Family History Past Medical History?: Yes - Past Social History Smoking Status: Never Smoked Chewing Tobacco Use: No Cigar Use: No Alcohol: None Drugs: Denies - CARDIAC Hx Cardiac Disorders: No - PULMONARY Hx Respiratory Disorders: No - NEUROLOGICAL Hx Neurological Disorder: No - HEENT Hx HEENT Problems: No - RENAL Hx Chronic Kidney Disease: No - ENDOCRINE/METABOLIC Hx Endocrine Disorders: No - HEMATOLOGICAL/ONCOLOGICAL Hx Blood Disorders: Yes Hx Anemia: Yes - INTEGUMENTARY Hx Dermatological Problems: No - MUSCULOSKELETAL/RHEUMATOLOGICAL Hx Musculoskeletal Disorders: No Hx Falls: No - GASTROINTESTINAL Hx Gastrointestinal Disorders: No - GENITOURINARY/GYNECOLOGICAL Hx Genitourinary Disorders: No Other/Comment: See HPI LMP:: : 1 Para: 1 - PSYCHIATRIC Hx Psychophysiologic Disorder: No Hx Substance Use: No - SURGICAL HISTORY Hx Surgeries: Yes Hx Section: Yes Other/Comment: See HPI - ANESTHESIA Hx Anesthesia: Yes Hx Anesthesia Reactions: No Hx Malignant Hyperthermia: No Has any member of the family had a problem w/ anesthesia?: No Meds Allergies/Adverse Reactions: Allergies Allergy/AdvReac Type Severity Reaction Status Date / Time pineapple AdvReac RASH Verified 01/28/17 04:42 - Medications Medications: Current Medications Docusate Sodium (Colace) 100 mg PO BID [facility] Last Admin: 02/09/17 08:29 Dose: 100 mg Ferrous Sulfate (Feosol) 325 mg PO BID [facility] Last Admin: 02/09/17 08:29 Dose: 325 mg Lactated Ringer's (Lactated Ringer's) 1,000 mls @ 125 mls/hr IV .Q8H [facility] Last Admin: 02/08/17 01:54 Dose: 125 mls/hr Cefazolin Sodium 2 gm/ Sodium (Chloride) 100 mls @ 100 mls/hr IVPB Q8 [facility] Ibuprofen (Motrin Tab) 800 mg PO Q8 PRN PRN Reason: Pain, moderate (4-7) Last Admin: 02/08/17 18:58 Dose: 800 mg Physical Exam - Additional Findings Additional findings: Physical exam: alert, well oriented in no acute distress Neck ; Supple, no adenopathy Chest; Clear, no rales or rhonchi Heart; RSR, no murmur Abd';Slight redness right end of the wound, with minimal discharge. Results - Vital Signs Recent Vital Signs: Last Vital Signs Temp 98.5 F 02/09/17 08:33 Pulse 98 H 02/09/17 08:33 Resp 20 02/09/17 08:33 BP 146/99 H 02/09/17 08:33 Pulse Ox 95 02/09/17 08:33 - Labs Result Diagrams: 02/09/17 06:25 02/08/17 07:10 Labs: Laboratory Results - last 24 hr 02/09/17 06:25 WBC 11.9 H RBC 2.83 L Hgb 7.8 L Hct 24.1 L MCV 85.2 MCH 27.6 MCHC 32.4 L RDW 14.8 H Plt Count 529 H Assessment & Plan - Assessment and Plan (Free Text) Assessment: Impression; Anemia secondary to acute bleeding post operative,y Plan: Plan; Pt's bleeding has slowed down and she is already on po iron TID. I think she will do well with at least 1 dose of iv iron prior to discharge. She is young and I dont want to transfuse her because she may develop antibodies and cause problems with future pregnancies, - Date & Time Date: 02/09/17 Time: 10:42
[2017-02-09] MEDS: ceFAZolin 2 GM in Sodium Chloride 0.9% 100 ML IVPB SCH ×2 (11:31→16:47)
[2017-02-09] MEDS: Lactated Ringer's 1,000 ML IV SCH ×2 (15:22→23:13)
[2017-02-10 00:48] VITALS: RESP 20; O2SAT 95
[2017-02-10] MEDS: ceFAZolin 2 GM in Sodium Chloride 0.9% 100 ML IVPB SCH ×2 (00:51→09:04)
[2017-02-10 07:46] VITALS: BP 145/94; PULSE 90; TEMP 97.7
[2017-02-10] MEDS: Lactated Ringer's 1,000 ML IV SCH (07:52)
--- NOTE | 2017-02-10 10:53 | CP.PCM.PN ---
Subjective - Date & Time of Evaluation Date of Evaluation: 02/10/17 Time of Evaluation: 10:51 - Subjective Subjective: Pt claims she is feeling much better today. She does not have any more bleeding. She received 300 mg of venofer yesterday, and will give 300 mg today prior to discharge. She will continue po iron until her Hgb normalizes. Objective - Vital Signs/Intake and Output Vital Signs (last 24 hours): Temp Pulse Resp BP Pulse Ox 97.7 F 90 20 145/94 H 95 02/10/17 07:46 02/10/17 07:46 02/10/17 07:46 02/10/17 07:46 02/10/17 07:46 - Medications Medications: Current Medications Docusate Sodium (Colace) 100 mg PO BID [facility] Last Admin: 02/10/17 09:05 Dose: 100 mg Ferrous Sulfate (Feosol) 325 mg PO BID [facility] Last Admin: 02/10/17 09:05 Dose: 325 mg Lactated Ringer's (Lactated Ringer's) 1,000 mls @ 125 mls/hr IV .Q8H [facility] Last Admin: 02/10/17 07:52 Dose: Not Given Cefazolin Sodium 2 gm/ Sodium (Chloride) 100 mls @ 100 mls/hr IVPB Q8 [facility] Last Admin: 02/10/17 09:04 Dose: 100 mls/hr Vancomycin HCl 1 gm/ Sodium (Chloride) 250 mls @ 166.667 mls/hr IVPB Q12H [facility] Last Admin: 02/10/17 09:46 Dose: 166.667 mls/hr Ibuprofen (Motrin Tab) 800 mg PO Q8 PRN PRN Reason: Pain, moderate (4-7) Last Admin: 02/10/17 01:42 Dose: 800 mg - Labs Labs: 02/09/17 06:25 02/08/17 07:10 PT 11.5 Seconds (9.8-13.1) 02/07/17 14:10 INR 1.1 (0.9-1.2) 02/07/17 14:10 APTT 27.3 Seconds (25.6-37.1) 02/07/17 14:10
--- NOTE | 2017-02-10 12:01 | CP.PCM.DIS ---
Provider - Provider Date of Admission: 02/08/17 16:44 Attending physician: Juan F Mcfadden MD Time Spent in preparation of Discharge (in minutes): 20 Hospital Course - Lab Results Lab Results: Micro Results 02/08/17 Unknown Abdomen Gram Stain - Final 02/08/17 Unknown Abdomen Wound Culture - Preliminary Enterococcus Faecalis Gram Negative Perez 02/07/17 15:10 Blood-Venous S.aureus & Coag-Neg Staph PNA FISH - Final 02/07/17 15:10 Blood-Venous Blood Culture - Final Coagulase Neg Staphylococcus 02/07/17 15:10 Blood-Venous Gram Stain - Final 02/07/17 18:30 Blood-Venous Blood Culture - Preliminary NO GROWTH AFTER 48 HOURS 02/07/17 14:10 Urine,Clean Catch Urine Culture - Final Corynebacterium Species Most Recent Lab Values WBC 11.9 K/uL (4.8-10.8) H 02/09/17 06:25 RBC 2.83 Mil/uL (3.80-5.20) L 02/09/17 06:25 Hgb 7.8 g/dL (12.0-16.0) L 02/09/17 06:25 Hct 24.1 % (34.0-47.0) L 02/09/17 06:25 MCV 85.2 fl (81.0-99.0) 02/09/17 06:25 MCH 27.6 pg (27.0-31.0) 02/09/17 06:25 MCHC 32.4 g/dL (33.0-37.0) L 02/09/17 06:25 RDW 14.8 % (11.5-14.5) H 02/09/17 06:25 Plt Count 529 K/uL (130-400) H 02/09/17 06:25 MPV 7.1 fl (7.2-11.7) L 02/08/17 07:10 Neut % (Auto) 78.3 % (50.0-75.0) H 02/08/17 07:10 Lymph % (Auto) 14.8 % (20.0-40.0) L 02/08/17 07:10 [place] % (Auto) 5.1 % (0.0-10.0) 02/08/17 07:10 Eos % (Auto) 1.5 % (0.0-4.0) 02/08/17 07:10 Baso % (Auto) 0.3 % (0.0-2.0) 02/08/17 07:10 Neut # 11.2 K/uL (1.8-7.0) H 02/08/17 07:10 Lymph # 2.1 K/uL (1.0-4.3) 02/08/17 07:10 [place] # 0.7 K/uL (0.0-0.8) 02/08/17 07:10 Eos # 0.2 K/uL (0.0-0.7) 02/08/17 07:10 Baso # 0.0 K/uL (0.0-0.2) 02/08/17 07:10 Retic Count 2.1 % (0.5-1.5) H 02/07/17 14:04 PT 11.5 Seconds (9.8-13.1) 02/07/17 14:10 INR 1.1 (0.9-1.2) 02/07/17 14:10 APTT 27.3 Seconds (25.6-37.1) 02/07/17 14:10 pO2 26 mm/Hg (30-55) L 02/07/17 15:22 VBG pH 7.38 (7.32-7.43) 02/07/17 15:22 VBG pCO2 51 mmHg (40-60) 02/07/17 15:22 VBG HCO3 26.9 mmol/L 02/07/17 15:22 VBG Total CO2 31.8 mmol/L (22-28) H 02/07/17 15:22 VBG O2 Sat (Calc) 45.0 % (40-65) 02/07/17 15:22 VBG Base Excess 4.1 mmol/L (0.0-2.0) H 02/07/17 15:22 VBG Potassium 3.6 mmol/L (3.6-5.2) 02/07/17 15:22 A-a O2 Difference 60.0 mm/Hg 02/07/17 15:22 Sodium 138.0 mmol/L (132-148) 02/07/17 15:22 Chloride 107.0 mmol/L (98-107) 02/07/17 15:22 Glucose 88 mg/dL (65-105) 02/07/17 15:22 Lactate 1.9 mmol/L (0.7-2.1) 02/07/17 15:22 FiO2 21.0 % 02/07/17 15:22 Crit Value Called To lyndsay Ponce 02/07/17 15:22 Crit Value Called By 203 02/07/17 15:22 Crit Value Read Back Y 02/07/17 15:22 Blood Gas Notified Time 1526 02/07/17 15:22 Sodium 143 mmol/l (132-148) 02/08/17 07:10 Potassium 3.7 MMOL/L (3.6-5.0) 02/08/17 07:10 Chloride 106 mmol/L (98-107) 02/08/17 07:10 Carbon Dioxide 25 mmol/L (22-30) 02/08/17 07:10 Anion Gap 16 (10-20) 02/08/17 07:10 BUN 8 mg/dl (7-17) 02/08/17 07:10 Creatinine 0.6 mg/dL (0.7-1.2) L 02/08/17 07:10 Est GFR ( Amer) > 60 02/08/17 07:10 Est GFR (Non-Af Amer) > 60 02/08/17 07:10 Random Glucose 88 mg/dL (65-105) 02/08/17 07:10 Calcium 8.4 mg/dL (8.4-10.2) 02/08/17 07:10 Total Bilirubin 0.4 mg/dl (0.2-1.3) 02/07/17 14:10 AST 47 U/L (14-36) H D 02/07/17 14:10 ALT 68 U/L (9-52) H D 02/07/17 14:10 Alkaline Phosphatase 96 U/L (38-126) 02/07/17 14:10 Total Protein 6.7 G/DL (6.3-8.2) 02/07/17 14:10 Albumin 3.3 g/dL (3.5-5.0) L 02/07/17 14:10 Globulin 3.4 gm/dL (2.2-3.9) 02/07/17 14:10 Albumin/Globulin Ratio 1.0 (1.0-2.1) 02/07/17 14:10 Venous Blood Potassium 3.6 mmol/L (3.6-5.2) 02/07/17 15:22 Urine Color Yellow (YELLOW) 02/07/17 14:10 Urine Clarity Cloudy (Clear) 02/07/17 14:10 Urine pH 6.0 (5.0-8.0) 02/07/17 14:10 Ur Specific [place] 1.016 (1.003-1.030) 02/07/17 14:10 Urine Protein 30 mg/dL (NEGATIVE) 02/07/17 14:10 Urine Glucose (UA) Neg mg/dL (Normal) 02/07/17 14:10 Urine Ketones 20 mg/dL (NEGATIVE) 02/07/17 14:10 Urine Blood Large (NEGATIVE) 02/07/17 14:10 Urine Nitrate Negative (NEGATIVE) 02/07/17 14:10 Urine Bilirubin Negative (NEGATIVE) 02/07/17 14:10 Urine Urobilinogen 2.0 mg/dL (0.2-1.0) H 02/07/17 14:10 Ur Leukocyte Esterase Large Ryan/uL (Negative) 02/07/17 14:10 Urine RBC (Auto) 184 /hpf (0-3) H 02/07/17 14:10 Urine Microscopic WBC 139 /hpf (0-5) H 02/07/17 14:10 Ur Squamous Epith Cells 2 /hpf (0-5) 02/07/17 14:10 Urine Bacteria Mod (<OCC) H 02/07/17 14:10 Urine Yeast (Budding) Occ /hpf (NEGATIVE) H 02/07/17 14:10 Blood Type O POSITIVE 02/07/17 14:10 Antibody Screen Negative 02/07/17 14:10 Crossmatch See Detail 02/07/17 14:10 BBK History Checked Patient has bt 02/07/17 14:10 - Hospital Course Hospital Course: uneventful Discharge Exam - Head Exam Head Exam: ATRAUMATIC - Respiratory Exam Additional comments: incision cleaned and packing changed Discharge Plan - Follow Up Plan Condition: SERIOUS Disposition: HOME/ ROUTINE Patient education suggested?: Yes Instructions: Wound Infection (DC), Surgical Site Infections (DC) Additional Instructions: call doctor if any problems Referrals: Juan F Mcfadden MD [Staff Provider] -
== END 2017-02-10 15:09 | disposition home or self-care (01) | DRG 376 ==
LOC: H.ER 13:19 → H.ERHOLD 15:51 → H.MEDSURG1 20:21 → OBSVTOIN 02-08 16:44
PROVIDERS: ADMIT Specialist; ATTEND Specialist
DX: O86.0 Infection of obstetric surgical wound (principal); A41.9 Sepsis, unspecified organism; Z68.43 Body mass index [BMI] 50.0-59.9, adult; L03.311 Cellulitis of abdominal wall; D62 Acute posthemorrhagic anemia; E66.01 Morbid (severe) obesity due to excess calories; I10 Essential (primary) hypertension; O99.89 Other specified diseases and conditions complicating pregnancy, childbirth and the puerperium; Z87.891 Personal history of nicotine dependence

== ENCOUNTER 2017-07-23 12:38 | Emergency (ER) | payer OTHER ==
[2017-07-23 12:38] VITALS: BMI 54.3
[2017-07-23 12:58] VITALS: BP 110/72; PULSE 88; TEMP 98.3; O2SAT 100
[2017-07-23 13:00] VITALS: RESP 16
--- NOTE | 2017-07-23 13:36 | ED PDOC ---
HPI: Eye Injury/Pain Time Seen by Provider: 07/23/17 13:00 Chief Complaint (Nursing): Eye Problem Chief Complaint (Provider): Eye Problem History Per: Patient History/Exam Limitations: no limitations Onset/Duration Of Symptoms: Days (x 2-3) Current Symptoms Are (Timing): Still Present Additional Complaint(s): Carissa is a 26 y/o female who presents to the ED complaining of red, sensitive eyes for the past 2-3 days. Patient also complains of associated blurry vision, crusty discharge, and increased tear production. She thought her symptoms were caused by allergies so she had been using Clear Eyes with no relief. She denies itchiness, fever, ENT problems, abdominal pain, nausea, or vomiting. PMD: Eryn Past Medical History Reviewed: Historical Data, Nursing Documentation, Vital Signs Vital Signs: Last Vital Signs Temp 98.3 F 07/23/17 12:54 Pulse 88 07/23/17 12:54 Resp 16 07/23/17 12:54 BP 110/72 07/23/17 12:54 Pulse Ox 100 07/23/17 12:54 - Medical History PMH: Anemia Denies: Depression, Diabetes, HTN, Chronic Kidney Disease - Surgical History Surgical History: - Family History Family History: States: Hypertension - Social History Current smoker - smoking cessation education provided: No Alcohol: None Drugs: Denies - Home Medications Home Medications: Ambulatory Orders Medication Instructions Recorded Vit No.126/Iron/Folic 1 tab PO DAILY 01/28/17 [Classic Tablet] oxyCODONE/Acetaminophen [Percocet 1 ea PO Q4 PRN #30 tab 02/02/17 5/325 mg Tab] Tobramycin [Tobrex] 1 drop OU Q4 #5 ml 07/23/17 - Allergies Allergies/Adverse Reactions: Allergies Allergy/AdvReac Type Severity Reaction Status Date / Time pineapple AdvReac RASH Verified 01/28/17 04:42 Review of Systems ROS Statement: Except As Marked, All Systems Reviewed And Found Negative Constitutional: Negative for: Fever Eyes: Positive for: Vision Change, Redness, Other (teary, discharge, sensitivity ) ENT: Negative for: Ear Pain, Nose Congestion, Throat Pain Respiratory: Negative for: Cough Gastrointestinal: Negative for: Nausea, Vomiting, Abdominal Pain Physical Exam - Reviewed Nursing Documentation Reviewed: Yes Vital Signs Reviewed: Yes - Physical Exam Appears: Positive for: Well, Non-toxic, No Acute Distress Skin: Positive for: Normal Color, Warm, Dry Eye Exam: Positive for: EOMI, PERRL, Conjunctival injection (mild b/l). Negative for: Nystagmus, Periorbital swelling, Periorbital tenderness, Other ( crusting, foreign body) Cardiovascular/Chest: Positive for: Regular Rate, Rhythm. Negative for: Murmur Respiratory: Positive for: Normal Breath Sounds. Negative for: Respiratory Distress Neurologic/Psych: Positive for: Alert, Oriented - ECG O2 Sat by Pulse Oximetry: 100 (RA) Pulse Ox Interpretation: Normal Medical Decision Making Medical Decision Making: Time: 13:32 Clinical Impression: Bacterial Conjunctivitis Plan: Tobramycin ophthalmic solution applied to both eyes -- Patient advised to refrain from contact lens use for 2 weeks. On re-evaluation, patient reports improvement of symptoms. On exam, patient remains AAOx3, in no acute distress. On exam, neck is supple, lungs CTA, cardiac RRR, neuro exam shows no focal findings. Dx of bacterial conjunctivitis d/w the patient. Based on history, exam and diagnostic results plan will be for discharge and outpatient follow up. Advised to follow up with primary care physician/ophtho in 1-2 days without fail. Advised to take medication as prescribed. Return to the emergency room at any time for any new or worsening symptoms. Patient states she fully agrees with and understands discharge instructions. States that she agrees with the plan and disposition. Verbalized and repeated discharge instructions and plan. I have given the patient opportunity to ask any additional questions. Scribe Attestation: Documented by Jeb Costa, acting as a scribe for Luz Elena Harden PA-C Provider Scribe Attestation: All medical record entries made by the Scribe were at my direction and personally dictated by me. I have reviewed the chart and agree that the record accurately reflects my personal performance of the history, physical exam, medical decision making, and the department course for this patient. I have also personally directed, reviewed, and agree with the discharge instructions and disposition. Disposition - Clinical Impression Clinical Impression: Bacterial conjunctivitis of both eyes - Patient ED Disposition Is Patient to be Admitted: No Counseled Patient/Family Regarding: Diagnosis, Need For Followup, Rx Given - Disposition Referrals: Negrito Swanson MD [Staff Provider] - Disposition: Routine/Home Disposition Time: 14:15 Condition: STABLE Prescriptions: Tobramycin [Tobrex] 1 drop OU Q4 #5 ml Instructions: Conjunctivitis ([place]) Forms: [facility] (Uzbek) Print Language: GEORGIAN - POA Present On Arrival: None
[2017-07-23] MEDS ORDERED: Tobramycin 0.3% OPHT SOLN OU ONE (15:00)
== END 2017-07-23 14:27 | disposition home or self-care (01) ==
LOC: H.ER 12:38
DX: H10.89 Other conjunctivitis (principal)